=== PATIENT | male | born 1960 | race Caucasian/White ===

== ENCOUNTER 2016-08-18 00:51 | Emergency (ER) | payer BC ==
[~2016-08-18] VITALS: Ht 185.4 cm; Wt 96.0 kg
[~2016-08-18 00:51] MED LIST: AMBIEN10 MG PO; BENTYL10 MG PO; BP MED PO; ENALAPRIL MALEA10 MG PO; ENALAPRIL MALEAT5 MG PO; FLAGYL500 MG PO; MOBIC15 MG PO; PAROXETINE HCL10 MG PO; PAXIL PO; PAXIL10 MG PO; PERCOCET 5-3251 EACH PO; PERCOCET 5/31 TABLET PO; PROMETHAZINE HC25 M1 PO; REGLAN10 MG PO; TRAZODONE HCL50 MG PO; WELLBUTRIN XL300 MG PO; ZOFRAN4 MG PO; [UNRECOGNIZED DRUG - REMARK]
[2016-08-18 01:28] LABS: HEMATOCRIT 36.9 % (38.0-50.0); MCHC 36.9 G/DL (30.0-36.0); MCV 84.1 FL (86-99); MEAN PLAT.VOLUME 10.8 uM^3 (9.0-12.4); PLATELET COUNT 228 K/uL (156-360); RBC DIS.WIDTH-CV 12.3 % (11.8-14.6); RBC DIS.WIDTH-SD 36.7 % (39-53); RED BLOOD COUNT 4.39 M/uL (4.00-5.50)
[2016-08-18 01:32] LABS: WHITE BLOOD COUNT 11.6 K/uL (4.1-10.2)
[2016-08-18 01:40] LABS: CHLORIDE 100 mEq/L (99-109); SODIUM 139 mEq/L (136-147)
[2016-08-18 01:42] LABS: GLUCOSE 110 mg/dL (70-99)
[2016-08-18 01:43] LABS: ANION GAP 8 MEQ/L (2-14)
[2016-08-18 01:46] LABS: GFR ESTIMATE (CALCULATED) > 59 mL/min/
[2016-08-18 01:47] LABS: UREA NITROGEN (BUN) 16 mg/dL (9-23)
[2016-08-18 01:49] LABS: TROP-I INTERPRETATION NEGATIVE; TROPONIN-I < 0.01 ng/mL (0.0-0.30)
[2016-08-18 03:55] LABS: TROP-I INTERPRETATION NEGATIVE; TROPONIN-I < 0.01 ng/mL (0.0-0.30)
[2016-08-18 04:19] VITALS: BP 102/77
== END 2016-08-18 04:20 | disposition home or self-care (01) ==
LOC: EME 00:51
PROVIDERS: Emergency Medicine
DX: R07.89 Other chest pain (principal); G89.29 Other chronic pain; Z79.891 Long term (current) use of opiate analgesic; I10 Essential (primary) hypertension
CPT/HCPCS: 71020; 80048; 84484; 85027; 93005; 99281; 99285